=== PATIENT | male | born 1985 | race Caucasian/White ===

== ENCOUNTER → 2017-02-12 | Day surgery (SDC) | payer OTHER ==
[2017-02-02 09:03] VITALS: Ht 179.1 cm; Wt 75.0 kg
[~2017-02-12] VITALS: Ht 179.1 cm; Wt 75.0 kg
[~2017-02-12] MED LIST: ATROPINE SULFATE 0.1 MG/ML 5ML SYR IV PRN; BUPIVACAINE/EPINEPHRINE 0.5% MPF 1:200,000 10 ML VIAL ONE; CEFAZOLIN 2000 MG/60 ML D5W IV SCH; DEXAMETHASONE SOD INJ 4 MG/ML VIAL ONE; EpHEDrine SULFATE INJ 50 MG/ML AMP IV PRN; FENTANYL CITRATE INJ 50 MCG/1 ML 2 ML VIAL ONE; FINA1TAB3 PO; FLUMAZENIL 0.1 MG/1 ML 10 ML VIAL IV PRN; HYDR-5688 PO; HYDROCODONE/ACETAMOPHEN 5/325MG TAB ONE; HYDROCODONE/ACETAMOPHEN 5/325MG TAB PO PRN; HYDROmorphone INJ 2 MG/ML SYR/VIAL IV PRN; IBUPROFEN 600 MG TAB PO PRN; KETOROLAC TROMETHAMINE 30 MG/ML VIAL ONE; LABETALOL HCL IV 5 MG/ML 20ML IV PRN; LACTATED RINGER'S 1000ML 1,000 ML IV SCH; LIDOCAINE HCL 2% 2 ML VIAL (20MG/ML) ONE; MEPERIDINE HCL 25 MG/ML CARP IV PRN; MIDAZOLAM HCL 1 MG/ML 2ML VIAL ONE; NALOXONE HCL 0.4 MG/1 ML VIAL/CARP IV PRN; ONDANSETRON INJ 2 MG/ML 2 ML VIAL IV PRN; ONDANSETRON INJ 2 MG/ML 2 ML VIAL ONE; PHENYLEPHRINE 100MCG/ML 5ML SYR IV PRN; PROPOFOL IV EMULSION 10 MG/ML 20 ML VIAL IV ONE; SCOPOLAMINE 1.5 MG TDSY TD ONE; SODIUM CHLORIDE 0.9% 1000ML 1,000 ML IV SCH
--- NOTE | 2017-02-12 06:55 | History & Physical Bridge Note ---
H&P Re-Evaluation Bridge Note: I have examined the patient, reviewed the History & Physical and in the interval since the performance of the History & Physical I have noted the following changes of clinical significance: No changes noted
--- NOTE | 2017-02-12 08:11 | [facility] Operative Report ---
Operative Report Operative Date Feb 12, 2017. Pre-Operative Diagnosis Left Inguinal Hernia Post-Operative Diagnosis large indirect; moderate direct inguinal hernias Procedure(s) Performed Left Inguinal Hernia Open Repair With Mesh with ilioinguinal neurolysis Surgeon Dr. Kovacs Battery Tester Field Surgeon(s) Holli Mcdowell PA-C Estimated Blood Loss 5 ML Findings large indirect hernia; moderate sized direct hernia Specimens None Anesthesia LMA Complication(s) None Disposition Recovery Room / PACU Description of Procedure After informed consent was obtained the patient was taken to the operating suite placed in supine position. Left groin was shaved and sterilely prepped and draped in usual fashion. An inguinal incision was made with a 15 blade scalpel and carried down through the soft tissue using electrocautery. The External oblique aponeurosis was skeletonized and a new blade was used to make a small incision in that. Metzenbaum scissors were used to extend this distally through the external ring as well as several centimeters proximally. Once in the inguinal canal I was able to bluntly dissect the cord and cord structures away from surrounding tissue. A blunt finger was used to gently tease the cord structures off the pubic bone and a Dominik drain was placed around it. As we inspected the cord structures there was a very large chronic hernia sac that went clear into the scrotum. We did open the sac to examine the contents and there was a very large amount of omentum entrapped within it. We were able to reduce this out of the scrotum and then back into the abdominal cavity. We took down the hernia sac in 360 next and excised the distal end of it. 3-0 Vicryl stitch was then used to close the hernia sac which was then dunked back down into the abdominal cavity. We did notice a moderate sized direct hernia as well which was easily reducible. We then placed a piece of polypropylene keyhole mesh as an onlay. It was secured distally to Isidoro's ligament laterally along the shelving portion of Poupart's ligament and medially along the midline musculature. The "arms" were wrapped around behind the cord and cord structures and secured underlying muscle. We made sure that it was not too tight. Prior to placing the mesh I did identify the ilioinguinal nerve and we did sharply lyse this to help prevent future cord entrapment syndrome. Again the procedure there was adequate hemostasis. I injected Marcaine around the edge of the mesh to help with postoperative analgesia. We thoroughly irrigated the wound. I then closed the external oblique aponeurosis with 2-0 Vicryl in running fashion. Soft tissue was irrigated and was closed with 3-0 Vicryl and skin was closed 4-0 Monocryl. Some additional Marcaine was injected around the skin for postoperative analgesia and skin glue used as a dressing. The patient was awaken x-rayed and transferred recovery in stable condition this end dictation on Raphael Kovacs dictating 02/12/2017 end of dictation thanks mary I attest to the content of the Intraoperative Record and any orders documented therein. Any exceptions are noted below.
--- NOTE | 2017-02-12 08:14 | Discharge Instructions-SurgCtr ---
Discharge Instructions Date of Service Feb 12, 2017. Visit Reason for Visit: Left Inguinal Hernia Discharge Discharge Diagnosis / Problem: left inguinal hernia Discharge Goals Goal(s): Decrease discomfort, Improve function Activity Recommendations Activity Limitations: as noted below Lifting Limitations: no more than 10 pounds Exercise/Sports Limitations: until after follow-up appointment May Resume Sexual Activity: after follow-up appointment Shower/Bathe: tomorrow Anesthesia . Post Anesthesia Instructions: If you have had General Anesthesia or IV Sedation: * Do not drive today. * Resume driving when surgeon permits. * Do not make important decisions or sign legal documents today. * Call surgeon for: 1. Temperature elevations greater than 101 degrees F. 2. Uncontrollable pain. 3. Excessive bleeding. 4. Persistent nausea and vomiting. 5. Medication intolerance (nausea, vomiting or rash). * For nausea and vomiting use only clear liquids such as: tea, soda, bouillon until nausea subsides, then gradually increase diet as tolerated. * If you have any concerns or questions, call your surgeon's office. If physician is unavailable and it is an emergency, call 911 or go to the nearest emergency room. . Instructions / Follow-Up Instructions / Follow-Up call [phone] to schedule a follow up appointment with Dr. Kovacs in 1-2 weeks if you don't already have one or if you have any questions or concerns. Diet Recommendations Home Diet: resume previous diet Procedures Procedures Performed: Left Inguinal Hernia Open Repair With Mesh with ilioinguinal neurolysis Pending Studies Studies pending at discharge: no Medical Emergencies . Who to Call and When: Medical Emergencies: If at any time you feel your situation is an emergency, please call 911 immediately. . Non-Emergent Contact Non-Emergency issues call your: Primary Care Provider, Surgeon Call Non-Emergent contact if: temperature is above 101, wound has increased drainage, wound has increased redness, wound has increased pain . . "Provider Documentation" section prepared by Robert Kovacs. .
[2017-02-12] MEDS: FENTANYL CITRATE INJ 50 MCG/1 ML 2 ML VIAL IV PRN ×2 (08:31→08:40)
--- NOTE | 2017-02-12 08:52 | Anesthesiology Progress Note ---
Anesthesia Post Op Note Date & Time Feb 12, 2017 at 08:52 Vital Signs Pain Intensity: 2 Vital Signs Past 12 Hours Date Time Temp Pulse Resp B/P (MAP) Pulse Ox O2 Delivery O2 Flow Rate FiO2 02/12/17 08:24 36.8 96 12 133/84 100 Diffusion Mask 6 02/12/17 06:28 36.8 67 16 143/83 (103) 97 Room Air Notes Mental Status: alert / awake / arousable, participated in evaluation Pt Amnestic to Procedure: Yes Nausea / Vomiting: adequately controlled Pain: adequately controlled Airway Patency, RR, SpO2: stable & adequate BP & HR: stable & adequate Hydration State: stable & adequate Anesthetic Complications: no major complications apparent
[2017-02-12 09:40] VITALS: BP 118/73; PULSE 53; TEMP 36.3; O2SAT 99
== END | disposition home or self-care (01) ==
LOC: X.SURG 06:14
PROVIDERS: ATTEND Surgery
DX: K40.90 Unilateral inguinal hernia, without obstruction or gangrene, not specified as recurrent (principal); Z87.01 Personal history of pneumonia (recurrent); Z80.3 Family history of malignant neoplasm of breast